=== PATIENT | female | born 1985 | race Caucasian/White ===

== ENCOUNTER 2020-10-27 16:10 | Outpatient (CLI) | payer OTHER, SELFPAY ==
[2020-10-27 18:47] LABS: SARS-CoV-2 Ag Negative (Negative)
== END 2020-10-27 16:11 | disposition home or self-care (01) ==
PROVIDERS: PCP Physician Assistant; Visit Provider Physician Assistant
DX: Z20.828 Contact with and (suspected) exposure to other viral communicable diseases (principal)
CPT/HCPCS: 87426

== ENCOUNTER 2021-07-17 16:26 | Emergency (ER) | payer OTHER, SELFPAY ==
--- NOTE | ~2021-07-17 | XR_ITS ---
EXAMINATION: XR chest 2V DATE: 07/17/2021 17:08 INDICATION: Cough and wheezing and shortness of breath. TECHNIQUE: Frontal and lateral views of the chest were obtained. COMPARISON: None. FINDINGS: The chest demonstrates clear lungs without pneumonia, pleural effusion, or pneumothorax. Th e heart size is normal. Surgical clips in the right upper quadrant are likely from cholecystectomy. IMPRESSION: 1. No acute cardiopulmonary disease. Reviewed, dictated and finalized at location A.
[2021-07-17 16:34] VITALS: BP 142/95; PULSE 100; RESP 24; TEMP 36.8; O2SAT 100
--- NOTE | 2021-07-17 16:34 | ED.URI ---
HPI - URI/Sore Throat General Chief Complaint: Upper Respiratory Infection Stated Complaint: Covid Symptoms Time Seen by Provider: 07/17/21 16:34 Source: patient and RN notes reviewed History of Present Illness HPI Narrative: Patient is a 36-year-old female who presents the urgent care with complaints of cough, wheezing, intermittent shortness of breath, headache, nausea, diarrhea, and fever. Patient states that symptoms started on Sunday. States that her daughter did have a slight cough and the boyfriend has been ill. Patient has been using her nebulizer and taking Sudafed for the symptoms. Patient states she has not had a fever since Sunday. No other acute complaints. No acute distress noted. Patient aware of the plan of care. Some parts of this dictation were generated by voice recognition software and may contain typographical and/or grammatical inaccuracies. Related Data Allergies Allergy/AdvReac Type Severity Reaction Status Date / Time No Known Allergies Allergy Verified 07/17/21 16:29 Review of Systems Review of Systems: CONSTITUTIONAL: Reports a fever, chills, sweats EYES: Denies visual changes, redness, or discharge. ENT: Denies rhinorrhea, congestion, sore throat, or otalgia. CARDIOVASCULAR: Denies chest pain, palpitations, or edema. RESPIRATORY: Reports of cough and dyspnea GASTROINTESTINAL: Reports of nausea and diarrhea without vomiting or abdominal pain GENITOURINARY: Denies dysuria or hematuria. SKIN: Denies rash or itching. MUSCULOSKELETAL: Denies back pain, joint pain, or myalgia. NEUROLOGIC: Reports of headache All other systems reviewed are negative, except as documented in HPI. PMFSH Comments At the time of my signature, I reviewed and agree with the nursing past medical, surgical, social, and family history. There is no relevant family history pertinent to the patient complaint. Exam Narrative: GENERAL: This is a well-nourished, well-developed patient, in no apparent distress. HEAD: normocephalic, atraumatic. EYES: PERRL. Sclera clear/white. Vision is grossly intact. EARS: External ears normal, auditory canals clear and without drainage, TMs normal without perforation. Hearing grossly intact. NOSE: External nose normal with no obvious nasal discharge, nares without redness, no rhinorrhea. THROAT: Mucous membranes moist, posterior pharynx clear. Mild postnasal drainage NECK: Neck supple CARDIOVASCULAR: Regular rate and rhythm without murmurs, gallops, or rubs. RESPIRATORY: Expiratory wheezes and coarse throughout GASTROINTESTINAL: Abdomen soft, non-tender, nondistended. Bowel sounds are active. SKIN: warm, intact with no suspicious lesions or rash, good texture and turgor. NEURO: awake, alert, and oriented to person, place and time. There were no obvious focal neurologic abnormalities. EXTREMITIES: No clubbing, cyanosis, or edema. Course Vital Signs Vital signs: Vital Signs Temperature 98.2 F 07/17/21 16:34 Pulse Rate 100 07/17/21 16:34 Respiratory Rate 24 H 07/17/21 16:34 Blood Pressure 142/95 H 07/17/21 16:34 Pulse Oximetry 100 07/17/21 16:34 Temperature 98.2 F 07/17/21 16:34 Pulse Rate 100 07/17/21 16:34 Respiratory Rate 24 H 07/17/21 16:34 Blood Pressure 142/95 H 07/17/21 16:34 Pulse Oximetry 100 07/17/21 16:34 Reviewed-patient is informed that they may have pre-hypertension or hypertension based on a blood pressure reading in the department. I recommend the patient call the primary care provider listed on their discharge instructions or a physician of their choice this week to arrange follow-up for further evaluation of possible pre-hypertension or hypertension. MDM - URI/Sore Throat MDM Narrative Medical decision making narrative: Reviewed lab results with the patient. She is aware that rapid Covid test was negative. Strep test is negative. Educated patient on culture and we will call within 72 hours if culture is positive and antibiotics are necess
== END 2021-07-17 17:25 | disposition home or self-care (01) ==
PROVIDERS: Emergency Provider Nurse Practitioner Family; PCP Physician Assistant
DX: J40 Bronchitis, not specified as acute or chronic (principal); Z20.822 Contact with and (suspected) exposure to COVID-19
CPT/HCPCS: 71046; 87081; 87426; 87880; 99213; C9803; G0463

== ENCOUNTER 2022-11-30 16:46 | Emergency (ER) | payer OTHER, SELFPAY ==
[2022-11-30 16:52] VITALS: BP 155/105; PULSE 80; RESP 14; TEMP 36.8; O2SAT 100
--- NOTE | 2022-11-30 16:52 | ED.URI ---
HPI - URI/Sore Throat General Chief Complaint: Upper Respiratory Infection Stated Complaint: sore throat Time Seen by Provider: 11/30/22 16:52 Source: patient and RN notes reviewed History of Present Illness HPI Narrative: Patient is a 37-year-old female who presents to the Urgent Care with complaints of a sore throat for 1 month and intermittent headaches. Patient states she does have a history of migraines and she currently does not have a migraine headache. Patient also reports of some left ear pain. Patient has been taking ibuprofen for the pain. States that she was treated within the last month for possible strep with amoxicillin and within 30 minutes of the medication broke out in a rash. Patient states she did go to the ER and ended up walking out and taking Benadryl at home. Patient states that she has had a lot of fatigue within the last month. Denies any recent fevers. No other acute complaints. No acute distress noted. Patient aware of the plan of care. Some parts of this dictation were generated by voice recognition software and may contain typographical and/or grammatical inaccuracies. Related Data Home Medications Medication Instructions Recorded Confirmed amlodipine 5 mg tablet 5 mg PO DAILY 11/30/22 11/30/22 norethindrone (contraceptive) 0.35 See Rx Instructions .Route .COMPLEX 11/30/22 11/30/22 mg tablet Allergies Allergy/AdvReac Type Severity Reaction Status Date / Time No Known Allergies Allergy Verified 11/30/22 16:56 Review of Systems Review of Systems: CONSTITUTIONAL: Denies fever, chills, or sweats. EYES: Denies visual changes, redness, or discharge. ENT: Denies rhinorrhea, congestion. Reports a sore throat left otalgia CARDIOVASCULAR: Denies chest pain, palpitations, or edema. RESPIRATORY: Denies cough or dyspnea. GASTROINTESTINAL: Denies abdominal pain, nausea, vomiting, or diarrhea. GENITOURINARY: Denies dysuria or hematuria. SKIN: Denies rash or itching. MUSCULOSKELETAL: Denies back pain, joint pain, or myalgia. NEUROLOGIC: reports of headaches All other systems reviewed are negative, except as documented in HPI. PMFSH Comments At the time of my signature, I reviewed and agree with the nursing past medical, surgical, social, and family history. There is no relevant family history pertinent to the patient complaint. Exam Narrative: GENERAL: This is a well-nourished, well-developed patient, in no apparent distress. HEAD: normocephalic, atraumatic. EYES: PERRL. Sclera clear/white. Vision is grossly intact. EARS: External ears normal, auditory canals clear and without drainage, TMs normal without perforation. Hearing grossly intact. NOSE: External nose normal with no obvious nasal discharge, nares without redness, no rhinorrhea. THROAT: Mucous membranes moist. [id number] bilateral tonsillar edema without exudate. Moderate postnasal drainage. NECK: Neck supple, non-tender without lymphadenopathy CARDIOVASCULAR: Regular rate and rhythm without murmurs, gallops, or rubs. RESPIRATORY: Clear to auscultation. Breath sounds equal bilaterally. No wheezes, rales, or rhonchi. SKIN: warm, intact with no suspicious lesions or rash, good texture and turgor. NEURO: awake, alert, and oriented to person, place and time. There were no obvious focal neurologic abnormalities. EXTREMITIES: No clubbing, cyanosis, or edema. Course Course Level of Care: Express Care Visit Vital Signs Vital signs: Vital Signs Temperature 98.3 F 11/30/22 16:52 Pulse Rate 80 11/30/22 16:52 Respiratory Rate 14 11/30/22 16:52 Blood Pressure 155/105 H 11/30/22 16:52 Pulse Oximetry 100 11/30/22 16:52 Oxygen Delivery Room Air 11/30/22 16:52 Temperature 98.3 F 11/30/22 16:52 Pulse Rate 80 11/30/22 16:52 Respiratory Rate 14 11/30/22 16:52 Blood Pressure 155/105 H 11/30/22 16:52 Pulse Oximetry 100 11/30/22 16:52 Oxygen Delivery Room Air 11/30/22 16:52 reviewed-
[2022-11-30 17:00] VITALS: BP 140/95
--- NOTE | 2022-11-30 18:07 | PC.NURSE ---
noted on admission pt informed nurse she had not yet taken b/p med today, [employer] aware
== END 2022-11-30 17:50 | disposition home or self-care (01) ==
PROVIDERS: Emergency Provider Nurse Practitioner Family; PCP Physician Assistant
DX: J02.9 Acute pharyngitis, unspecified (principal); I10 Essential (primary) hypertension; J45.909 Unspecified asthma, uncomplicated
CPT/HCPCS: 36416; 86308; 87081; 87880; 99213; G0463

== ENCOUNTER 2023-08-17 16:15 | Emergency (ER) | payer OTHER, SELFPAY ==
[2023-08-17 16:28] VITALS: BP 155/93; PULSE 110; RESP 16; TEMP 36.6; O2SAT 100
--- NOTE | 2023-08-17 17:02 | ED.URI ---
HPI - URI/Sore Throat General Chief Complaint: Upper Respiratory Infection Stated Complaint: Earache and Sore Throat Source: patient, family and RN notes reviewed History of Present Illness HPI Narrative: 38 yo F presents to urgent care with friend at side. Pt states she began having a discomfort in her throat 3 days ago but would take an ibuprofen with good results. Pt states then her right ear started hurting 2-3 days ago which radiates to her right side of throat. Denies any known fevers but reports feeling hot lately. Denies any chest pain, SOB, N/V/D. Related Data Home Medications Medication Instructions Recorded Confirmed amlodipine 5 mg tablet 10 mg PO DAILY 11/30/22 08/17/23 Allergies Allergy/AdvReac Type Severity Reaction Status Date / Time amoxicillin Allergy Hives Verified 08/17/23 16:36 Review of Systems Review of Systems: Pertinent positives and pertinent negatives per HPI. PMFSH Comments At the time of my signature, I reviewed and agree with the nursing past medical, surgical, social, and family history. There is no relevant family history pertinent to the patient complaint. Exam Narrative: GENERAL: This is a well-nourished, well-developed patient, in no apparent distress. HEAD: normocephalic, atraumatic. EYES: Sclera clear/white. Vision is grossly intact. EARS: External ears normal, auditory canals clear and without drainage, TMs normal without perforation. Hearing grossly intact. NOSE: External nose normal with no obvious nasal discharge, nares without redness, no rhinorrhea. THROAT: Mucous membranes moist, posterior pharynx erythemic. Bilateral tonsils 2+. NECK: Neck supple, non-tender without lymphadenopathy, masses or thyromegaly. CARDIOVASCULAR: Regular rate and rhythm without murmurs, gallops, or rubs. RESPIRATORY: Clear to auscultation. Breath sounds equal bilaterally. No wheezes, rales, or rhonchi. GASTROINTESTINAL: Abdomen soft, non-tender, nondistended. Bowel sounds are active. No hepato-splenomegaly, or palpable masses. No guarding. SKIN: warm, intact with no suspicious lesions or rash, good texture and turgor. NEURO: awake, alert, and oriented to person, place and time. There were no obvious focal neurologic abnormalities. EXTREMITIES: No clubbing, cyanosis, or edema. No joint tenderness, effusion, or edema noted. BACK: Nontender without deformity or crepitus. No flank tenderness. Course Course Level of Care: Express Care Visit Vital Signs Vital signs: Vital Signs Temperature 97.8 F 08/17/23 16:28 Pulse Rate 110 H 08/17/23 16:28 Respiratory Rate 16 08/17/23 16:28 Blood Pressure 155/93 H 08/17/23 16:28 Pulse Oximetry 100 08/17/23 16:28 Oxygen Delivery Room Air 08/17/23 16:28 Temperature 97.8 F 08/17/23 16:28 Pulse Rate 110 H 08/17/23 16:28 Respiratory Rate 16 08/17/23 16:28 Blood Pressure 155/93 H 08/17/23 16:28 Pulse Oximetry 100 08/17/23 16:28 Oxygen Delivery Room Air 08/17/23 16:28 reviewed MDM - URI/Sore Throat MDM Narrative Medical decision making narrative: Rapid strep is negative in the office; however we will send to the lab for confirmation; there is a small percentage chance that it can come back positive; if it is, we will call you in 2-3days; and your prescription will be call in to your pharmacy. However, there is NO indication for antibiotic at this time. -Increase your fluids and Vitamin C. -Oral rinses such as: Salt water gargles and/or may use topical anesthetic (eg. Chloraseptic spray) or lozenges to relieve dryness or throat pain. -Take tylenol and ibuprofen as needed for pain and fever as directed. -Frequent hand washing or hand chief supply chain officer is one of the best ways to prevent spread of infection. -Follow up with primary care provider in 2-3 days if condition is not improving or seek ER visit if your child starts breathing fast/has trouble breathing, is not drinking enough fluids, muffle voice, difficulty opening the
== END 2023-08-17 17:17 | disposition home or self-care (01) ==
PROVIDERS: Emergency Provider Nurse Practitioner Family; PCP Physician Assistant
DX: J03.90 Acute tonsillitis, unspecified (principal); Z79.899 Other long term (current) drug therapy
CPT/HCPCS: 87081; 87880; 99213; G0463

== ENCOUNTER 2024-06-01 16:03 | Emergency (ER) | payer OTHER, SELFPAY ==
[2024-06-01 16:09] VITALS: BP 149/83; PULSE 92; RESP 18; TEMP 36.6; O2SAT 100
[2024-06-01 17:09] LABS: Glucose Point of Care 85 mg/dl (65-105)
--- NOTE | 2024-06-01 17:14 | ED.GENADULT ---
HPI - General Adult General Chief complaint: Urogenital-Female Stated complaint: Urinary Problem Source: patient Mode of arrival: ambulatory Limitations: no limitations History of Present Illness HPI narrative: Patient presents for evaluation of urinary symptoms for last week. Symptoms include urinary urgency, frequency, incomplete emptying, and some incontinence secondary to urgency. She denies any fever, chills, nausea, vomiting, abdominal pain, low back pain, vaginal bleeding or discharge. Both parents were diagnosed with diabetes. She does not have a history of DM. She has been adding packets of flavored powder that contains artificial sweetener to her water for the past week. Related Data Home Medications Medication Instructions Recorded Confirmed amlodipine 5 mg tablet 10 mg PO DAILY 11/30/22 08/17/23 atorvastatin 20 mg tablet mg 06/01/24 lisinopril 40 mg tablet mg 06/01/24 Allergies Allergy/AdvReac Type Severity Reaction Status Date / Time amoxicillin Allergy Hives Verified 08/17/23 16:36 Review of Systems Review of Systems: CONSTITUTIONAL: Denies fever, chills, or sweats. EYES: Denies visual changes, redness, or discharge. ENT: Denies rhinorrhea, congestion, sore throat, or otalgia. CARDIOVASCULAR: Denies chest pain, palpitations, or edema. RESPIRATORY: Denies cough or dyspnea. GASTROINTESTINAL: Denies abdominal pain, nausea, vomiting, or diarrhea. GENITOURINARY: Reports urinary frequency, urgency, incomplete emptying and some urinary incontinence as a result of her urgency. Denies dysuria, vaginal bleeding/discharge SKIN: Denies rash or itching. MUSCULOSKELETAL: Denies back pain, joint pain, or myalgia. NEUROLOGIC: Denies headache, numbness, dizziness, or weakness. PSYCHIATRIC: Denies anxiety or depression. [facility] Past Medical History Medical History Hyperlipidemia Hypertension Surgical History Surgical History History of hysterectomy Family History Family History Mother Family history non-contributory Social History Social History Living arrangements: with family Gender identity (if verbalized by the patient): Female Sexual Orientation (if Verbalized by the Patient): Straight or Heterosexual Spiritual care concerns: No Exam Narrative: GENERAL: Well-appearing, well-nourished, and in no acute distress. HEAD: Normocephalic, atraumatic. EYES: PERRLA and EOMI. ENT: Nares clear, no rhinorrhea or epistaxis. Mucous membranes moist. Oropharynx without tonsillar hypertrophy exudate or other lesions. Bilateral TMs pearly white nonbulging NECK: Supple. No adenopathy or masses. No carotid bruits or JVD CHEST: Clear to auscultation. No respiratory distress. No wheezes rales or rhonchi HEART: Regular rate and rhythm. No murmur heard. Normal peripheral pulses. ABDOMEN: Soft, nontender, nondistended, normal active bowel sounds. EXTREMITIES: Normal range of motion. No edema. SKIN: Warm, dry, no rash. NEURO: No focal deficits. Alert and oriented x3. PSYCH: Normal mood and affect. Course Course Emergency Course: This is a 39-year-old female who presented for evaluation of urinary symptoms. Today her urine had ketones present without glucose. Accu-Chek showed a blood sugar of 85. There is no evidence of infection in her urine today. She is not have any discharge to suggest vaginal infection. It sounds like her symptoms are 2/2 consuming artificial sweetener that she has been adding to her water for approximately same duration of time in which she has been experiencing symptoms. She will refrain from continuing to consume this. I will give her prescription for oxybutynin in the event that her symptoms persist. She should follow up with primary ca
== END 2024-06-01 17:15 | disposition home or self-care (01) ==
PROVIDERS: Emergency Provider Nurse Practitioner; PCP Physician Assistant
DX: R39.15 Urgency of urination (principal); E78.5 Hyperlipidemia, unspecified; I10 Essential (primary) hypertension
CPT/HCPCS: 81003; 82948; 99213; G0463

== ENCOUNTER 2024-06-14 12:07 | Emergency (ER) | payer OTHER, SELFPAY ==
[2024-06-14 12:16] VITALS: BP 136/78; PULSE 76; RESP 20; TEMP 37; O2SAT 100
[2024-06-14] MEDS: TETANUS,DIPHTHERIA,AC PERTUSSIS ADULT (0.5 ML) BOOSTRIX IM (12:24)
--- NOTE | 2024-06-14 13:10 | ED.GENADULT ---
HPI - General Adult General Chief complaint: Wound/Laceration Stated complaint: Laceration to Left Foot Source: patient Mode of arrival: ambulatory Limitations: no limitations History of Present Illness HPI narrative: Patient presents for evaluation of a wound to the dorsal aspect of the right great toe that occurred yesterday. She had a idalia knife down which punctured through her rubber sandal and punctured the dorsal aspect of the right great toe. Reports minimal pain. Wound is already approximated. Tetanus is not up to date. She is not diabetic. No fever, chills, nausea, vomiting or drainage from the area. She also mentions that she stepped on a idalia nail, which punctured through her rubber soled shoe four days ago. She states the nail barely punctured her skin. Related Data Home Medications Medication Instructions Recorded Confirmed atorvastatin 20 mg tablet 20 mg PO DAILY 06/01/24 06/14/24 lisinopril 40 mg tablet 40 mg PO DAILY 06/01/24 06/14/24 Allergies Allergy/AdvReac Type Severity Reaction Status Date / Time amoxicillin Allergy Hives Verified 06/14/24 12:34 Review of Systems Review of Systems: CONSTITUTIONAL: Denies fever, chills, or sweats. EYES: Denies visual changes, redness, or discharge. ENT: Denies rhinorrhea, congestion, sore throat, or otalgia. CARDIOVASCULAR: Denies chest pain, palpitations, or edema. RESPIRATORY: Denies cough or dyspnea. GASTROINTESTINAL: Denies abdominal pain, nausea, vomiting, or diarrhea. GENITOURINARY: Denies dysuria or hematuria. SKIN: Reports puncture wound to the dorsal aspect of the right great toe. Reports recent puncture wound to the plantar aspect of the left foot MUSCULOSKELETAL: Denies back pain, joint pain, or myalgia. NEUROLOGIC: Denies headache, numbness, dizziness, or weakness. PSYCHIATRIC: Denies anxiety or depression. [facility] Past Medical History Medical History Hyperlipidemia Hypertension Surgical History Surgical History History of hysterectomy Family History Family History Mother Family history non-contributory Social History Social History Living arrangements: with family Gender identity (if verbalized by the patient): Female Sexual Orientation (if Verbalized by the Patient): Straight or Heterosexual Spiritual care concerns: No Exam Narrative: GENERAL: Well-appearing, well-nourished, and in no acute distress. HEAD: Normocephalic, atraumatic. EYES: PERRLA and EOMI. ENT: Nares clear, no rhinorrhea or epistaxis. Mucous membranes moist. Oropharynx without tonsillar hypertrophy exudate or other lesions. Bilateral TMs pearly white nonbulging NECK: Supple. No adenopathy or masses. No carotid bruits or JVD CHEST: Clear to auscultation. No respiratory distress. No wheezes rales or rhonchi HEART: Regular rate and rhythm. No murmur heard. Normal peripheral pulses. ABDOMEN: Soft, nontender, nondistended, normal active bowel sounds. EXTREMITIES: Normal range of motion. No edema. SKIN: Warm, dry, no rash. There is a 2mm area of hyperpigmentation to dorsal aspect of right great toe NEURO: No focal deficits. Alert and oriented x3. PSYCH: Normal mood and affect. Course Course Emergency Course: This is a 39-year-old female who presented for evaluation after experiencing a puncture wound yesterday. She had another incident on Sunday of this week. There is no drainage from either site at the present time. Will cover her with Levaquin due to puncture through upper material with both wounds. Was updated on tetanus. Advised on wound care. Follow-up with primary provider. Go to the ER for worsening symptoms. Patient in agreement plan of care. Level of Care: Express Care Visit Vital Signs Joelle
== END 2024-06-14 12:58 | disposition home or self-care (01) ==
PROVIDERS: Emergency Provider Nurse Practitioner; PCP Physician Assistant
DX: S91.131A Puncture wound without foreign body of right great toe without damage to nail, initial encounter (principal); W26.0XXA Contact with knife, initial encounter; Z23 Encounter for immunization; E78.5 Hyperlipidemia, unspecified; I10 Essential (primary) hypertension
CPT/HCPCS: 90471; 90715; 99213; G0463